=== PATIENT | female | born 1965 | race Caucasian/White ===

== ENCOUNTER 2023-05-16 12:10 | Emergency (ER) | payer MEDICAID ==
[~2023-05-16] VITALS: Ht 154.9 cm; Wt 99.8 kg
[2023-05-16 12:41] VITALS: BP 132/83; PULSE 77; RESP 18; TEMP 98; O2SAT 99
[2023-05-16] MEDS ORDERED: ONDANSETRON 4 MG ODT PO ONE (13:15)
[2023-05-16] MEDS ORDERED: KETOROLAC 30 MG/ML VIAL IM ONE (13:15)
[2023-05-16] MEDS ORDERED: KETOROLAC 30 MG/ML VIAL IVP ONE (13:35)
[2023-05-16] MEDS ORDERED: ONDANSETRON 4 MG/2 ML VIAL IVP ONE (13:35)
[2023-05-16 13:39] LABS: BASOPHILS % (AUTO) 0.4 % (0.0-2.0); EOSINOPHILS # (AUTO) 0.1 K/uL (0-0.4); EOSINOPHILS % (AUTO) 1.2 % (0.0-4.0); HEMATOCRIT 38.9 % (36-48); HEMOGLOBIN 12.6 g/dL (12.0-16.0); LYMPHOCYTES # (AUTO) 1.5 K/uL (2.5-16.5); MEAN CORPUSCULAR HEMOGLOBIN 27 pg (27-31); MEAN CORPUSCULAR HGB CONC 33 g/dL (33-37); MEAN CORPUSCULAR VOLUME 83.4 fL (80-94); MONOCYTES # (AUTO) 0.5 K/uL (0.8-1.0); MONOCYTES % (AUTO) 5.5 % (1.7-9.3); NEUTROPHILS # (AUTO) 6.9 K/uL (1.8-7.7); NEUTROPHILS % (AUTO) 75.9 % (42.2-75.2); PLATELET COUNT (AUTO) 188 K/uL (140-450); RED BLOOD CELL COUNT(AUTO) 4.67 MIL/uL (4.20-5.40); RED CELL DISTRIBUTION WIDTH 15.6 % (11.6-13.7); WHITE BLOOD COUNT (AUTO) 9.1 K/uL (4.8-10.8)
[2023-05-16] MEDS ORDERED: ONDA-188 PO (14:23)
[2023-05-16] MEDS ORDERED: NAPR-1704 PO (14:23)
[2023-05-16] MEDS ORDERED: TAMS0.4C96 PO (14:23)
[2023-05-16 14:25] LABS: ALBUMIN 3.4 g/dL (3.4-5.0); CARBON DIOXIDE 29.2 mmol/L (21-32); CREATININE 0.7 mg/dL (0.6-1.3); POTASSIUM 4.2 mmol/L (3.5-5.1); TOTAL BILIRUBIN 0.4 mg/dL (0.0-1.0)
[2023-05-16] MEDS ORDERED: MORPHINE SULFATE 4 MG/ML SYR IVP ONE ×2 (14:50→18:10)
--- NOTE | 2023-05-16 15:00 | NUR ---
Patient's pain continues to be 10/10 even with IVP medication.
[2023-05-16] MEDS ORDERED: oxyCODONE/APAP 5/325 MG 1 TAB TAB PO ONE (15:30)
--- NOTE | 2023-05-16 15:55 | NUR ---
Patient's pain continues to be 10/10 even with IVP medication given by RN.
[2023-05-16 16:13] LABS: BILIRUBIN,URINE NEGATIVE (NEGATIVE); BLOOD, URINE 2+ (NEGATIVE); LEUKOCYTE ESTERASE ,URINE NEGATIVE (NEGATIVE); NITRITE, URINE NEGATIVE (NEGATIVE); PH,URINE 5.5 (5.0-9.0); UGLUCOSE NEGATIVE (NEGATIVE)
[2023-05-16 16:15] LABS: APPEARANCE,URINE CLOUDY (CLEAR)
[2023-05-16 16:16] LABS: COLOR,URINE AMBER (YELLOW)
[2023-05-16 16:24] LABS: CALCIUM OXALATE CRYSTALS,UR 0-10 /HPF (None Seen)
--- NOTE | 2023-05-16 17:06 | NUR ---
Dr. Ren evaluating patient at bedside.
--- NOTE | 2023-05-16 17:19 | NUR ---
Patient being taken to CT via gurney.
--- NOTE | 2023-05-16 17:35 | NUR ---
Patient returned from CT
--- NOTE | 2023-05-16 18:01 | NUR ---
Patient ambulated to restroom with steady gait.
[2023-05-16 19:00] VITALS: BP 163/81; PULSE 80; RESP 18; TEMP 96.2; O2SAT 98
--- NOTE | 2023-05-16 19:20 | NUR ---
Report given to QUEENIE Melgar for transfer of care.
--- NOTE | 2023-05-16 19:20 | NUR ---
Patient's pain is at a 9/10 with IVP medication given by RN.
--- NOTE | 2023-05-16 21:00 | NUR ---
Patient discharged with v/s stable. Written and verbal after care instructions given and explained. Patient alert, oriented and verbalized understanding of instructions. Ambulatory with steady gait. All questions addressed prior to discharge. ID band removed. Patient advised to follow up with PMD. Rx of naproxen, zofran, flomax given. Opportunity to ask questions provided and answered.
== END 2023-05-16 21:00 | disposition home or self-care (01) ==
LOC: MED 12:10
DX: R10.32 Left lower quadrant pain (principal); N20.0 Calculus of kidney; E11.9 Type 2 diabetes mellitus without complications; Z79.4 Long term (current) use of insulin; Z79.899 Other long term (current) drug therapy
CPT/HCPCS: 36415; 74176; 80053; 81001; 81025; 85025; 87086; 96374; 96375; 96376; 99285; J1885; J2270; J2405